=== PATIENT | female | born 1965 | race Caucasian/White ===

== ENCOUNTER 2017-06-05 16:20 | Emergency (ER) | payer OTHER ==
[~2017-06-05] VITALS: Ht 165.1 cm; Wt 105.7 kg
[~2017-06-05 16:20] MED LIST: LISINOPRIL5 MG PO; NASONEX17 GM BOTH NARES; OSTERA TABLET1 EACH PO; PRINIVIL5 MG PO; SOY MENOPAUSE55 MG PO
[2017-06-05 17:04] LABS: HEMATOCRIT 39.8 % (36.0-46.0); HEMOGLOBIN 13.7 G/DL (11.9-15.5); MCH 32.3 PG (29.0-34.0); MCHC 34.4 G/DL (30.0-36.0); MCV 93.9 FL (83-99); PLATELET COUNT 236 K/uL (156-360); RBC DIS.WIDTH-CV 11.8 % (11.8-14.6); RBC DIS.WIDTH-SD 40.8 % (39-53); RED BLOOD COUNT 4.24 M/uL (3.80-5.20); WHITE BLOOD COUNT 5.4 K/uL (4.1-10.2)
[2017-06-05 17:16] LABS: CHLORIDE 106 mEq/L (99-109); POTASSIUM 4.1 mEq/L (3.7-5.4)
[2017-06-05 17:17] LABS: SODIUM 141 mEq/L (136-147)
[2017-06-05 17:18] LABS: GLUCOSE 103 mg/dL (70-99)
[2017-06-05 17:22] LABS: CREATININE 0.9 mg/dL (0.6-1.3); GFR ESTIMATE (CALCULATED) > 59 mL/min/
[2017-06-05 17:23] LABS: UREA NITROGEN (BUN) 15 mg/dL (9-23)
[2017-06-05 17:26] LABS: TROP-I INTERPRETATION NEGATIVE; TROPONIN-I < 0.01 ng/mL (0.0-0.30)
[2017-06-05 17:29] LABS: MAGNESIUM 2.1 mg/dL (1.3-2.7)
[2017-06-05 17:39] LABS: D-DIMER ELISA < 150.00 ng/mLDDU (<230)
[2017-06-05] MEDS ORDERED: ATORVASTATIN CA10 MG PO (18:06)
[2017-06-05] MEDS ORDERED: METFORMIN HCL500 M1 PO (18:07)
[2017-06-05] MEDS ORDERED: LISINOPRIL10 MG PO (18:08)
[2017-06-05] MEDS ORDERED: TURMERIC500 M2 PO (18:10)
[2017-06-05] MEDS ORDERED: CYANOCOBALAM1000 MCG PO (18:13)
[2017-06-05] MEDS ORDERED: MOTRIN IB200 MG PO (18:16)
[2017-06-05 18:33] LABS: THYROTROPIN (TSH) 1.4 MIU/L (0.4-5.5)
[2017-06-05 19:30] VITALS: BP 132/76
[2017-06-05 21:04] LABS: ALBUMIN 4.4 G/DL (3.2-4.8); ALKALINE PHOSPHATASE 97 IU/L (3-129); ALT (GPT) 30 IU/L (3-49); AST (GOT) 25 IU/L (2-34); LIPASE 32 U/L (1.0-51.0); TOTAL BILIRUBIN 0.4 MG/DL (0.0-1.0)
== END 2017-06-05 19:31 | disposition left against medical advice (07) ==
LOC: EME 16:20
PROVIDERS: Physician Assistant
DX: R07.2 Precordial pain (principal); R00.2 Palpitations; E66.01 Morbid (severe) obesity due to excess calories; Z68.38 Body mass index [BMI] 38.0-38.9, adult; E11.9 Type 2 diabetes mellitus without complications; I10 Essential (primary) hypertension; Z96.659 Presence of unspecified artificial knee joint; Z88.2 Allergy status to sulfonamides
CPT/HCPCS: 71046; 80048; 80076; 83690; 83735; 84443; 84484; 85027; 85379; 93005; 99281; 99284

== ENCOUNTER 2017-08-02 06:25 | Day surgery (SDC) | payer OTHER ==
[~2017-08-02] VITALS: Ht 165.1 cm; Wt 106.0 kg
[~2017-08-02 06:25] MED LIST changes: +ATORVASTATIN CA10 MG PO; +CYANOCOBALAM1000 MCG PO; +LISINOPRIL10 MG PO; +METFORMIN HCL500 M1 PO; +MOTRIN IB200 MG PO; +POTASSIUM-9999 MG PO; +TURMERIC500 M2 PO
== END 2017-08-02 13:45 | disposition home or self-care (01) ==
LOC: CATH 06:25
PROVIDERS: Internal Medicine Cardiovascular Disease
DX: R07.89 Other chest pain (principal); R94.39 Abnormal result of other cardiovascular function study; I10 Essential (primary) hypertension; E78.5 Hyperlipidemia, unspecified; E11.9 Type 2 diabetes mellitus without complications; Z82.49 Family history of ischemic heart disease and other diseases of the circulatory system; Z79.84 Long term (current) use of oral hypoglycemic drugs
CPT/HCPCS: 82948; 93005; C1769; C1887; J1644; J2250; J2405; J3010